=== PATIENT | female | born 1965 | race Caucasian/White ===

== ENCOUNTER 2019-09-18 23:23 | Emergency (ER) | payer MEDICAID ==
[2019-09-19] MEDS ORDERED: Lactated Ringers 1,000 ML IV ONE (00:39)
[2019-09-19] MEDS ORDERED: Metoclopramide 10 MG/2 ML SDV IVPUSH ONE (00:41)
--- NOTE | 2019-09-19 00:52 | EDM.PDOC ---
ED HPI GENERAL MEDICAL PROBLEM - General Chief Complaint: General Stated Complaint: DIZZY, WARM/COLD SWEATS, NAUSEA Time Seen by Provider: 09/19/19 00:35 Source of Information: Reports: Patient, Old Records, RN History Limitations: Reports: Other (incomplete records, poor historian) - History of Present Illness INITIAL COMMENTS - FREE TEXT/NARRATIVE: 54 yo female presents with dizziness and diaphoresis. She has many medical problems and has not been taking most of her medications. Has been moving around a lot lately. Has not checked her BP for several days as her meter has batteries. Had an emesis on arrival to the ER. No reported pain. Lower Abdomen Pain Score (Numeric/FACES): 5 - Related Data Allergies Allergy/AdvReac Type Severity Reaction Status Date / Time hydromorphone [From Dilaudid] Allergy Nausea and Verified 09/19/19 01:30 Vomiting iodine Allergy Itching Verified 09/19/19 01:28 ketorolac [From Toradol] Allergy Hives Verified 09/19/19 01:30 lactobacillus Allergy Rash Verified 09/19/19 01:30 topiramate [From Topamax] Allergy Rash Verified 09/18/19 23:48 venom-honey bee Allergy Respiratory Verified 09/18/19 23:48 Distress cats Allergy Itching Uncoded 09/19/19 01:30 eucalyptus oil Allergy Rash Uncoded 09/19/19 01:28 IV dye Allergy Rash Uncoded 09/19/19 01:28 latex Allergy Itching Uncoded 09/19/19 01:28 vitamin k Allergy Rash Uncoded 09/19/19 01:30 Home Meds: Home Meds Sulfamethoxazole/Trimethoprim [Sulfamethoxazole-Tmp Ds Tablet] 1 each PO BID [History] Acetaminophen [Mapap] 1,000 mg PO TID 09/19/19 [History] Celecoxib [CeleBREX] 200 mg PO BID 09/19/19 [History] Cetirizine [ZyrTEC] 10 mg PO DAILY 09/19/19 [History] EPINEPHrine [Epipen 2-Gustavo] 0.3 mg IJ ASDIRECTED 09/19/19 [History] Escitalopram Oxalate [Lexapro] 20 mg PO DAILY 09/19/19 [History] Fluticasone Propionate [Flonase Allergy Relief] 2 spray NS DAILY 09/19/19 [ History] Furosemide [Lasix] 10 mg PO DAILY 09/19/19 [History] Gabapentin [Neurontin] 100 mg PO TID 09/19/19 [History] Insulin Glarg,Human.Rec.Analog [Lantus Solostar] 25 unit SUBCUT BEDTIME [History] Levothyroxine [Synthroid] 88 mcg PO DAILY 09/19/19 [History] Past Medical History HEENT History: Reports: Impaired Vision Cardiovascular History: Reports: Heart Murmur, High Cholesterol, Hypertension Respiratory History: Reports: Asthma, COPD Gastrointestinal History: Reports: Cirrhosis, Pancreatitis Genitourinary History: Reports: Diabetic Nephropathy, Renal Calculus, UTI, Recurrent, Other (See Below) Other Genitourinary History: 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: Musculoskeletal History: Reports: Fracture Other Musculoskeletal History: fx foot Neurological History: Reports: Brain Injury, Concussion, Head Trauma Psychiatric History: Reports: Addiction, Anxiety, Bipolar, Depression, Psych Hospitalization(s), PTSD, Schizophrenia, Suicide Attempt Endocrine/Metabolic History: Reports: Diabetes, Type II, Hyperthyroidism - Infectious Disease History Infectious Disease History: Reports: Chicken Pox - Past Surgical History GI Surgical History: Reports: Appendectomy, Cholecystectomy, Colonoscopy, Hernia , Abdominal, Lysis of Adhesions, Other (See Below) Other GI Surgeries/Procedures: small bowel obstruction States has had aprox 30 abdomenal surgeries Musculoskeletal Surgical History: Reports: Other (See Below) Other Musculoskeletal Surgeries/Procedures:: bilateral knee surgery bilateral feet surgery neck surgery Social & Family History - Tobacco Use Smoking Status *Q: Current Every Day Smoker Years of Tobacco use: 40 Packs/Tins Daily: 0.2 Used Tobacco, but Quit: No Second Hand Smoke Exposure: Yes - Caffeine Use Caffeine Use: Reports: Soda - Alcohol Use Days Per Week of Alcohol Use: 0 - Recreational Drug Use Recreational Drug Use: No ED ROS GENERAL - Review of Systems Review Of Systems: See Below Constitutional: Reports: Diaphoresis HEENT: Reports: No Symptoms Respiratory: Reports: Shortness of Breath Cardiovascular: Reports: Lightheadedness Endocrine: Reports: High Glucose GI/Abdominal: Reports: Nausea, Vomiting : Reports: No Symptoms Musculoskeletal: Reports: No Symptoms Skin: Reports: Diaphoresis Neurological: Reports: No Symptoms Psychiatric: Reports: No Symptoms ED EXAM, GENERAL - Physical Exam Exam: See Below Exam Limited By: No Limitations General Appearance: Alert, WD/WN, No Apparent Distress Eye Exam: Bilateral Eye: Normal Inspection Ears: Normal External Exam, Normal Canal, Hearing Grossly Normal, Normal TMs Ear Exam: Bilateral Ear: Auricle Normal, Canal Normal, TM normal Nose: Normal Inspection, No Blood Throat/Mouth: Normal Inspection, Normal Lips, Normal Oropharynx, Normal Voice, No Airway Compromise Head: Atraumatic, Normocephalic Neck: Normal Inspection Respiratory/Chest: No Respiratory Distress, Lungs Clear, Normal Breath Sounds, No Accessory Muscle Use Cardiovascular: Regular Rate, Rhythm, No Edema GI/Abdominal: Normal Bowel Sounds, Soft, Non-Tender, No Distention Back Exam: Normal Inspection. No: CVA Tenderness (R), CVA Tenderness (L) Extremities: Normal Inspection, Normal Range of Motion, Non-Tender, No Pedal Edema Neurological: Alert, Oriented, CN II-XII Intact, Normal Cognition, No Motor/ Sensory Deficits Psychiatric: Normal Affect, Normal Mood Skin Exam: Warm, Dry, Intact, Normal Color, No Rash EKG INTERPRETATION EKG Date: 09/19/19 Time: 01:15 Rhythm: NSR Rate (Beats/Min): 76 [place]: Normal P-Wave: Present QRS: Normal ST-T: Normal QT: Normal Comparison: NA - No Prior EKG EKG Interpretation Comments: Flattened T waves throughout. Course - Vital Signs Last Recorded V/S: Last Vital Signs Temp 35.5 C L 09/18/19 23:59 Pulse 66 09/18/19 23:59 Resp 16 09/18/19 23:59 BP 140/88 09/18/19 23:59 Pulse Ox 98 09/18/19 23:59 Orthostatic Blood Pressure [ 123/81 Standing] Orthostatic Blood Pressure [ 134/74 Sitting] Orthostatic Blood Pressure [ 129/76 Supine] - Orders/Labs/Meds Orders: Active Orders 24 hr Category Date Time Status EKG Documentation Completion [RC] ASDIRECTED Care 09/19/19 00:50 Active Orthostatic Vital Signs [RC] ASDIRECTED Care 09/19/19 00:25 Active GLUCOSE POC LAB TO COLLECT [POC] Stat Lab 09/19/19 02:15 Ordered UA W/MICROSCOPIC [URIN] Stat Lab 09/19/19 00:39 Ordered EKG 12 Lead [EK] Routine Ther 03/29/20 00:49 Ordered Labs: Laboratory Tests 09/19/19 09/19/19 09/19/19 Range/Units 01:00 01:00 01:00 WBC 5.8 (4.5-11.0) K/uL RBC 4.35 (3.30-5.50) M/uL Hgb 12.7 (12.0-15.0) g/dL Hct 36.9 (36.0-48.0) % MCV 85 (80-98) fL MCH 29 (27-31) pg MCHC 34 (32-36) % Plt Count 195 (150-400) K/uL Sodium 131 L (140-148) mmol/L Potassium 3.6 (3.6-5.2) mmol/L Chloride 95 L (100-108) mmol/L Carbon Dioxide 24 (21-32) mmol/L Anion Gap 15.6 H (5.0-14.0) mmol/L BUN 26 H (7-18) mg/dL Creatinine 1.3 H (0.6-1.0) mg/dL Est Cr Clr Drug Dosing 43.22 mL/min Estimated GFR (MDRD) 43 L (>60) Glucose 293 H (74-106) mg/dL Calcium 9.7 (8.5-10.1) mg/dL Troponin I < 0.017 (0.000-0.056) ng/mL Ethyl Alcohol < 3 mg/dL Meds: Medications Discontinued Medications Generic Name Dose Route Start Last Admin Trade Name Freq PRN Reason Stop Dose Admin Lactated Ringer's 1,000 mls @ 1,000 mls/hr 09/19/19 00:39 09/19/19 00:58 Ringers, Lactated IV 09/19/19 01:38 1,000 mls/hr BOLUS ONE Administration Insulin Human Regular 12 unit 09/19/19 01:25 09/19/19 01:36 Humulin R SUBCUT 09/19/19 01:26 12 units ONETIME ONE Administration Metoclopramide HCl 5 mg 09/19/19 00:41 09/19/19 01:04 Reglan IVPUSH 09/19/19 00:42 5 mg ONETIME ONE Administration Departure - Departure Time of Disposition: 02:20 Disposition: Home, Self-Care 01 Condition: Fair Clinical Impression: Elevated blood sugar, Mild dehydration - Discharge Information *PRESCRIPTION DRUG MONITORING PROGRAM REVIEWED*: No *COPY OF PRESCRIPTION DRUG MONITORING REPORT IN PATIENT AARTI: No Instructions: Dehydration, Adult, [id number], Hyperglycemia, [id number] Referrals: PCP,None [Primary Care Provider] - Forms: ED Department Discharge Additional Instructions: Drink enough water so that your urine is light yellow in color. Follow a diabetic diet to help keep your blood sugar in check. Recheck in the clinic on Friday. Use Zofran as needed for nausea control. If your glucose meter has batteries, look into getting new ones Friday morning. Take TMP/SMZ every 12 hrs for up to 6 more days for your UTI. Sepsis Event Note - Evaluation Sepsis Screening Result: No Definite Risk - Focused Exam Vital Signs: Vital Signs Temp Pulse Resp BP Pulse Ox 09/18/19 23:59 35.5 C L 66 16 140/88 98 Date Exam was Performed: 09/19/19 Time Exam was Performed: 02:17 - My Orders Last 24 Hours: My Active Orders 09/19/19 00:25 Orthostatic Vital Signs [RC] ASDIRECTED 09/19/19 00:39 UA W/MICROSCOPIC [URIN] Stat 09/19/19 00:49 EKG 12 Lead [EK] Routine 09/19/19 00:50 EKG Documentation Completion [RC] ASDIRECTED 09/19/19 02:15 GLUCOSE POC LAB TO COLLECT [POC] Stat - Assessment/Plan Last 24 Hours: My Active Orders 09/19/19 00:25 Orthostatic Vital Signs [RC] ASDIRECTED 09/19/19 00:39 UA W/MICROSCOPIC [URIN] Stat 09/19/19 00:49 EKG 12 Lead [EK] Routine 09/19/19 00:50 EKG Documentation Completion [RC] ASDIRECTED 09/19/19 02:15 GLUCOSE POC LAB TO COLLECT [POC] Stat
[2019-09-19] MEDS ORDERED: Insulin Regular, Human 100 Units/ML 3 ML Vial SUBCUT ONE (01:25)
[2019-09-19] MEDS ORDERED: Sulfamethoxazole/Trimethoprim 800-160 MG Tab PO STA (02:42)
== END 2019-09-19 03:05 | disposition home or self-care (01) ==
LOC: JP.ED 23:23
DX: E11.21 Type 2 diabetes mellitus with diabetic nephropathy (principal); E86.0 Dehydration; I10 Essential (primary) hypertension; E78.00 Pure hypercholesterolemia, unspecified; J44.9 Chronic obstructive pulmonary disease, unspecified; F41.9 Anxiety disorder, unspecified; F32.9 Major depressive disorder, single episode, unspecified; F17.210 Nicotine dependence, cigarettes, uncomplicated; Z91.040 Latex allergy status; Z91.030 Bee allergy status; Z91.048 Other nonmedicinal substance allergy status; Z91.041 Radiographic dye allergy status; Z88.5 Allergy status to narcotic agent; Z88.8 Allergy status to other drugs, medicaments and biological substances; Z79.4 Long term (current) use of insulin; Z79.899 Other long term (current) drug therapy
CPT/HCPCS: 36415; 80048; 80307; 82962; 84484; 85027; 93005; 96361; 96374; 99284; A9270; J1815; J2765; J7120

== ENCOUNTER 2019-10-22 19:01 | Emergency (ER) | payer MEDICAID ==
--- NOTE | 2019-10-22 19:42 | EDM.PDOC ---
ED HPI GENERAL MEDICAL PROBLEM - General Chief Complaint: Cardiovascular Problem Stated Complaint: SOB,SWELLING IN FEET AND LEGS Time Seen by Provider: 10/22/19 19:25 Source of Information: Reports: Patient History Limitations: Reports: No Limitations - History of Present Illness INITIAL COMMENTS - FREE TEXT/NARRATIVE: 54-year-old female arrives with a mild amount of increased swelling in her feet over the past 3 to 4 days and a perceived increase shortness of breath. She denies getting a day extra sodium intake. Her left foot is also been hurting her for about 2 months and she wants that looked at. She had a talk with her primary provider and they wanted her to come in and get checked due to concerns about developing congestive heart failure. She has no fevers or chills, she continues to smoke about a half a pack a day, no nausea or vomiting or chest pain. Onset: Gradual Duration: Day(s): (Several days) Associated Symptoms: Reports: Shortness of Breath (Intermittent, not orthopneic) . Denies: Chest Pain, Cough, Diaphoresis, Nausea/Vomiting, Weakness Bilateral Feet Pain Score (Numeric/FACES): 6 - Related Data Allergies Allergy/AdvReac Type Severity Reaction Status Date / Time hydromorphone [From Dilaudid] Allergy Nausea and Verified 10/22/19 19:18 Vomiting iodine Allergy Itching Verified 10/22/19 19:18 ketorolac [From Toradol] Allergy Hives Verified 10/22/19 19:18 lactobacillus Allergy Rash Verified 10/22/19 19:18 topiramate [From Topamax] Allergy Rash Verified 10/22/19 19:18 venom-honey bee Allergy Respiratory Verified 10/22/19 19:18 Distress cats Allergy Itching Uncoded 10/22/19 19:18 eucalyptus oil Allergy Rash Uncoded 10/22/19 19:18 IV dye Allergy Rash Uncoded 10/22/19 19:18 latex Allergy Itching Uncoded 10/22/19 19:18 vitamin k Allergy Rash Uncoded 10/22/19 19:18 Home Meds: Home Meds Sulfamethoxazole/Trimethoprim [Sulfamethoxazole-Tmp Ds Tablet] 1 each PO BID [History] Acetaminophen [Mapap] 1,000 mg PO TID 09/19/19 [History] Albuterol [Ventolin HFA] 2 puff .XX Q4H PRN 09/19/19 [History] Amylase/Lipase/Protease [Pancrelipase DR 5,000 Units] 1 cap PO BID 09/19/19 [ History] Celecoxib [CeleBREX] 200 mg PO BID 09/19/19 [History] Cetirizine [ZyrTEC] 10 mg PO DAILY 09/19/19 [History] Cholecalciferol (Vitamin D3) [Vitamin D3] 2 tab PO DAILY 09/19/19 [History] Cholecalciferol (Vitamin D3) [Vitamin D3] 5,000 unit PO DAILY 09/19/19 [History] EPINEPHrine [Epipen 2-Gustavo] 0.3 mg IJ ASDIRECTED 09/19/19 [History] Escitalopram Oxalate [Lexapro] 20 mg PO DAILY 09/19/19 [History] Fluticasone Propionate [Flonase Allergy Relief] 2 spray NS DAILY 09/19/19 [ History] Furosemide [Lasix] 10 mg PO DAILY 09/19/19 [History] Gabapentin [Neurontin] 100 mg PO TID 09/19/19 [History] Insulin Glarg,Human.Rec.Analog [Lantus Solostar] 15 unit SUBCUT TID 09/19/19 [ History] Insulin Glarg,Human.Rec.Analog [Lantus Solostar] 25 unit SUBCUT BEDTIME [History] Levothyroxine [Synthroid] 88 mcg PO DAILY 09/19/19 [History] Loperamide [Imodium] 2 mg PO Q6H PRN 09/19/19 [History] Meclizine [Antivert] 25 mg PO TID PRN 09/19/19 [History] Omeprazole 40 mg PO BID 09/19/19 [History] Ondansetron [Zofran ODT] 4 mg PO Q6H PRN 09/19/19 [History] Prochlorperazine [Compazine] 5 mg PO Q6H PRN 09/19/19 [History] Zaleplon [Sonata] 10 mg PO BEDTIME 09/19/19 [History] lisinopriL [Zestril] 5 mg PO DAILY 09/19/19 [History] oxyCODONE 5 mg PO Q6H PRN 09/19/19 [History] polyethylene glycoL 3350 [MiraLAX] 17 gm PO DAILY PRN 09/19/19 [History] rOPINIRole HCl [Requip] 0.25 mg PO BEDTIME 09/19/19 [History] risperiDONE 1 mg PO BID 09/19/19 [History] Past Medical History HEENT History: Reports: Impaired Vision Cardiovascular History: Reports: Heart Murmur, High Cholesterol, Hypertension Respiratory History: Reports: Asthma, COPD Gastrointestinal History: Reports: Cirrhosis, Pancreatitis Genitourinary History: Reports: Diabetic Nephropathy, Renal Calculus, UTI, Recurrent, Other (See Below) Other Genitourinary History: 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: Musculoskeletal History: Reports: Fracture Other Musculoskeletal History: fx foot Neurological History: Reports: Brain Injury, Concussion, Head Trauma Psychiatric History: Reports: Addiction, Anxiety, Bipolar, Depression, Psych Hospitalization(s), PTSD, Schizophrenia, Suicide Attempt Endocrine/Metabolic History: Reports: Diabetes, Type II, Hyperthyroidism - Infectious Disease History Infectious Disease History: Reports: Chicken Pox - Past Surgical History GI Surgical History: Reports: Appendectomy, Cholecystectomy, Colonoscopy, Hernia , Abdominal, Lysis of Adhesions, Other (See Below) Other GI Surgeries/Procedures: small bowel obstruction States has had aprox 30 abdomenal surgeries Musculoskeletal Surgical History: Reports: Other (See Below) Other Musculoskeletal Surgeries/Procedures:: bilateral knee surgery bilateral feet surgery neck surgery Social & Family History - Family History Family Medical History: Noncontributory - Tobacco Use Smoking Status *Q: Current Every Day Smoker Years of Tobacco use: 49 Packs/Tins Daily: 0.5 Tobacco Use Comment: hemp cigarettes - Caffeine Use Caffeine Use: Reports: Soda, Tea - Recreational Drug Use Recreational Drug Use: No ED ROS GENERAL - Review of Systems Review Of Systems: See Below Constitutional: Denies: Fever, Chills HEENT: Reports: No Symptoms Respiratory: Reports: Shortness of Breath Cardiovascular: Reports: Edema. Denies: Chest Pain, Palpitations Endocrine: Denies: Fatigue GI/Abdominal: Denies: Abdominal Pain, Nausea, Vomiting : Reports: No Symptoms Musculoskeletal: Reports: Other (Left foot pain along the large toe metatarsal) Skin: Reports: No Symptoms Neurological: Denies: Dizziness, Headache ED EXAM, GENERAL - Physical Exam Exam: See Below Exam Limited By: No Limitations General Appearance: Alert, No Apparent Distress, Other (Patient is completely comfortable, no increased respiratory effort or respiratory rate. O2 sats are 98% on room air temperature is 98.3) Head: Atraumatic Respiratory/Chest: No Respiratory Distress, Lungs Clear Cardiovascular: Regular Rate, Rhythm. No: Extra Beats Extremities: Pedal Edema (Patient does have a small amount of pitting edema around the ankles and distal lower leg, somewhat tender to palpation over the metatarsal of the large toe on the left side. No deformity, bruising, erythema or warmth. Edema is very minimal, just slightly worse on the right.) Psychiatric: Flat Affect Skin Exam: Warm, Dry Course - Vital Signs Last Recorded V/S: Last Vital Signs Temp 98.3 F 10/22/19 19:19 Pulse 72 10/22/19 19:19 Resp 16 10/22/19 19:19 BP 134/77 10/22/19 19:19 Pulse Ox 98 10/22/19 19:19 - Re-Assessments/Exams Free Text/Narrative Re-Assessment/Exam: 10/22/19 19:40 Reassured the patient that her vitals and physical exam other than the slight lower extremity edema are actually very normal. She only takes 10 mg of Lasix daily, I asked her to take an extra dose in the early afternoon through the weekend and avoid any extra salt intake. I reviewed her labs from last month when she was here, I do not think they need repeating. I did give her some doses of ibuprofen to take for the foot pain and encouraged her to continue her regular medications. Recheck early next week if not improving satisfactorily, and I encouraged her to return anytime this weekend if increasing shortness of breath, chest pains, increased edema despite the extra Lasix and I also put an Morgan wrap on her left foot for comfort. Departure - Departure Time of Disposition: 19:59 Disposition: Home, Self-Care Clinical Impression: Bilateral lower extremity edema, Tendinitis of left foot Instructions: Edema Referrals: Florentino Jeter MD [Primary Care Provider] - Forms: ED Department Discharge Care Plan Goals: Continue your current medications except take 1 extra Lasix in the early afternoon through the weekend and avoid any extra salt intake. Elevate feet when able, and recheck next week if not improving satisfactorily. 1 dose of ibuprofen twice daily will help with your foot pain. Return anytime if worsening despite treatment. Sepsis Event Note - Evaluation Sepsis Screening Result: No Definite Risk - Focused Exam Vital Signs: Vital Signs Temp Pulse Resp BP Pulse Ox 10/22/19 19:19 98.3 F 72 16 134/77 98 Date Exam was Performed: 10/22/19 Time Exam was Performed: 20:19
== END 2019-10-22 20:00 | disposition home or self-care (01) ==
LOC: JP.ED 19:01
DX: M77.9 Enthesopathy, unspecified (principal); R60.0 Localized edema; I10 Essential (primary) hypertension; J44.9 Chronic obstructive pulmonary disease, unspecified; E11.40 Type 2 diabetes mellitus with diabetic neuropathy, unspecified; E05.90 Thyrotoxicosis, unspecified without thyrotoxic crisis or storm; F41.9 Anxiety disorder, unspecified; F31.9 Bipolar disorder, unspecified; Z88.5 Allergy status to narcotic agent; Z87.442 Personal history of urinary calculi; Z88.8 Allergy status to other drugs, medicaments and biological substances; Z91.030 Bee allergy status; Z91.040 Latex allergy status; Z91.041 Radiographic dye allergy status; Z91.048 Other nonmedicinal substance allergy status; Z79.899 Other long term (current) drug therapy; Z79.4 Long term (current) use of insulin
CPT/HCPCS: 99283; 99284

== ENCOUNTER 2020-02-01 20:48 | Emergency (ER) | payer MEDICAID ==
--- NOTE | 2020-02-01 22:17 | EDM.PDOC ---
ED HPI GENERAL MEDICAL PROBLEM - General Chief Complaint: Genitourinary Problem Stated Complaint: BLADDER INFECTION? Time Seen by Provider: 02/01/20 22:13 Source of Information: Reports: Patient, RN Notes Reviewed History Limitations: Reports: No Limitations - History of Present Illness INITIAL COMMENTS - FREE TEXT/NARRATIVE: 54-year-old female presents emergency department a complaint of dysuria and itching she also states is been feeling kind of nausea she does have a solitary kidney has been having some left-sided flank discomfort as well no fevers symptoms have been ongoing for 1 week - Related Data Allergies Allergy/AdvReac Type Severity Reaction Status Date / Time hydromorphone [From Dilaudid] Allergy Nausea and Verified 02/01/20 21:26 Vomiting iodine Allergy Itching Verified 02/01/20 21:26 ketorolac [From Toradol] Allergy Hives Verified 02/01/20 21:26 lactobacillus Allergy Rash Verified 02/01/20 21:26 topiramate [From Topamax] Allergy Rash Verified 02/01/20 21:26 venom-honey bee Allergy Respiratory Verified 02/01/20 21:26 Distress cats Allergy Itching Uncoded 02/01/20 21:26 eucalyptus oil Allergy Rash Uncoded 02/01/20 21:26 IV dye Allergy Rash Uncoded 02/01/20 21:26 latex Allergy Itching Uncoded 02/01/20 21:26 vitamin k Allergy Rash Uncoded 02/01/20 21:26 Home Meds: Home Meds Acetaminophen [Mapap] 1,000 mg PO TID 09/19/19 [History] Albuterol [Ventolin HFA] 2 puff .XX Q4H PRN 09/19/19 [History] Amylase/Lipase/Protease [Pancrelipase DR 5,000 Units] 1 cap PO BID 09/19/19 [History] Celecoxib [CeleBREX] 200 mg PO BID 09/19/19 [History] Cetirizine [ZyrTEC] 10 mg PO DAILY 09/19/19 [History] Cholecalciferol (Vitamin D3) [Vitamin D3] 2 tab PO DAILY 09/19/19 [History] Cholecalciferol (Vitamin D3) [Vitamin D3] 5,000 unit PO DAILY 09/19/19 [History] EPINEPHrine [Epipen 2-Gustavo] 0.3 mg IJ ASDIRECTED 09/19/19 [History] Escitalopram Oxalate [Lexapro] 20 mg PO DAILY 09/19/19 [History] Fluticasone Propionate [Flonase Allergy Relief] 2 spray NS DAILY 09/19/19 [History] Furosemide [Lasix] 10 mg PO DAILY 09/19/19 [History] Gabapentin [Neurontin] 100 mg PO TID 09/19/19 [History] Insulin Glarg,Human.Rec.Analog [Lantus Solostar] 15 unit SUBCUT TID 09/19/19 [History] Insulin Glarg,Human.Rec.Analog [Lantus Solostar] 25 unit SUBCUT BEDTIME 09/19/19 [History] Levothyroxine [Synthroid] 88 mcg PO DAILY 09/19/19 [History] Loperamide [Imodium] 2 mg PO Q6H PRN 09/19/19 [History] Meclizine [Antivert] 25 mg PO TID PRN 09/19/19 [History] Omeprazole 40 mg PO BID 09/19/19 [History] Ondansetron [Zofran ODT] 4 mg PO Q6H PRN 09/19/19 [History] Prochlorperazine [Compazine] 5 mg PO Q6H PRN 09/19/19 [History] Zaleplon [Sonata] 10 mg PO BEDTIME 09/19/19 [History] lisinopriL [Zestril] 5 mg PO DAILY 09/19/19 [History] oxyCODONE 5 mg PO Q6H PRN 09/19/19 [History] polyethylene glycoL 3350 [MiraLAX] 17 gm PO DAILY PRN 09/19/19 [History] rOPINIRole HCl [Requip] 0.25 mg PO BEDTIME 09/19/19 [History] risperiDONE 1 mg PO BID 09/19/19 [History] Past Medical History HEENT History: Reports: Impaired Vision Cardiovascular History: Reports: Heart Murmur, High Cholesterol, Hypertension Respiratory History: Reports: Asthma, COPD Gastrointestinal History: Reports: Cirrhosis, Pancreatitis Genitourinary History: Reports: Diabetic Nephropathy, Renal Calculus, UTI, Recurrent, Other (See Below) Other Genitourinary History: past 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 stint 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: Musculoskeletal History: Reports: Fracture Other Musculoskeletal History: fx foot Neurological History: Reports: Brain Injury, Concussion, Head Trauma Psychiatric History: Reports: Addiction, Anxiety, Bipolar, Depression, Psych Hospitalization(s), PTSD, Schizophrenia, Suicide Attempt Endocrine/Metabolic History: Reports: Diabetes, Type II, Hyperthyroidism - Infectious Disease History Infectious Disease History: Reports: Chicken Pox - Past Surgical History Head Surgeries/Procedures: Reports: None HEENT Surgical History: Reports: None Cardiovascular Surgical History: Reports: None Respiratory Surgical History: Reports: None GI Surgical History: Reports: Appendectomy, Cholecystectomy, Colonoscopy, Hernia, Abdominal, Lysis of Adhesions, Other (See Below) Other GI Surgeries/Procedures: small bowel obstruction States has had aprox 30 abdomenal surgeries Endocrine Surgical History: Reports: None Neurological Surgical History: Reports: None Musculoskeletal Surgical History: Reports: Other (See Below) Other Musculoskeletal Surgeries/Procedures:: bilateral knee surgery bilateral feet surgery neck surgery Dermatological Surgical History: Reports: None Social & Family History - Family History Family Medical History: Noncontributory - Tobacco Use Smoking Status *Q: Current Every Day Smoker Years of Tobacco use: 45 Packs/Tins Daily: 0.5 Used Tobacco, but Quit: No Second Hand Smoke Exposure: No - Caffeine Use Caffeine Use: Reports: Coffee, Soda - Recreational Drug Use Recreational Drug Use: No ED ROS GENERAL - Review of Systems Review Of Systems: See Below Constitutional: Reports: No Symptoms. Denies: Fever Respiratory: Reports: No Symptoms Cardiovascular: Reports: No Symptoms GI/Abdominal: Reports: Nausea : Reports: Dysuria, Other (Itching) ED EXAM, RENAL/ - Physical Exam Exam: See Below Exam Limited By: No Limitations General Appearance: Alert, WD/WN, No Apparent Distress GI/Abdominal: Soft, Non-Tender Back Exam: CVA Tenderness (L) Course - Vital Signs Last Recorded V/S: Last Vital Signs Temp 96.5 F L 02/01/20 21:30 Pulse 99 02/01/20 21:30 Resp 16 02/01/20 21:30 BP 132/82 02/01/20 21:30 Pulse Ox 95 02/01/20 21:30 - Orders/Labs/Meds Orders: Active Orders 24 hr Category Date Time Status CULTURE URINE [RM] Urgent Lab 02/01/20 21:59 Received Labs: Laboratory Tests 02/01/20 Range/Units 21:24 Urine Color Yellow (YELLOW) Urine Appearance Slightly cloudy A (CLEAR) Urine pH 5.5 (5.0-8.0) Ur Specific [place] <= 1.005 L (1.008-1.030) Urine Protein 100 H (NEGATIVE) mg/dL Urine Glucose (UA) 500 H (NEGATIVE) mg/dL Urine Ketones Negative (NEGATIVE) mg/dL Urine Occult Blood Small H (NEGATIVE) Urine Nitrite Negative (NEGATIVE) Urine Bilirubin Negative (NEGATIVE) Urine Urobilinogen 0.2 (0.2-1.0) EU/dL Ur Leukocyte Esterase Negative (NEGATIVE) Urine RBC 0-5 (0-5) Urine WBC 5-10 H (0-5) Ur Epithelial Cells Few Amorphous Sediment Not seen Urine Bacteria Many Urine Mucus Not seen Departure - Departure Time of Disposition: 22:16 Disposition: Home, Self-Care 01 Condition: Fair Clinical Impression: UTI, Urinary tract infectious disease - Discharge Information Instructions: Urinary Tract Infection, Adult, [id number] Referrals: PCP,None [Primary Care Provider] - Additional Instructions: Take full course antibiotics, please followup with your primary care provider in 3-5 days if not better, please call return to the emergency department with worsening of symptoms. Sepsis Event Note (ED) - Evaluation Sepsis Screening Result: No Definite Risk - Focused Exam Vital Signs: Vital Signs Temp Pulse Resp BP Pulse Ox 02/01/20 21:30 96.5 F L 99 16 132/82 95 02/01/20 21:18 96.5 F L 99 16 132/82 95 - My Orders Last 24 Hours: My Active Orders 02/01/20 21:59 CULTURE URINE [RM] Urgent - Assessment/Plan Last 24 Hours: My Active Orders 02/01/20 21:59 CULTURE URINE [RM] Urgent Plan: Assessment Acuity = acute Site and laterality = urinary tract infection concern for pyelonephritis Etiology = probable bacterial cause Manifestations = dysuria Location of injury = Home Lab values = 5-10 WBCs consistent with a pyuria, many bacteria cultures pending Plan Elected to treat a longer course of Bactrim DS 1 tab p.o. twice daily x10 days follow-up primary care 3 to 5 days if not better This note was dictated using [email or web address] voice recognition software please call with any questions on syntax or grammar.
== END 2020-02-01 22:22 | disposition home or self-care (01) ==
LOC: JP.ED 20:48
DX: N39.0 Urinary tract infection, site not specified (principal); E78.00 Pure hypercholesterolemia, unspecified; I10 Essential (primary) hypertension; E11.21 Type 2 diabetes mellitus with diabetic nephropathy; J44.9 Chronic obstructive pulmonary disease, unspecified; F41.9 Anxiety disorder, unspecified; F31.9 Bipolar disorder, unspecified; F17.210 Nicotine dependence, cigarettes, uncomplicated; Z91.040 Latex allergy status; Z88.6 Allergy status to analgesic agent; Z91.041 Radiographic dye allergy status; Z88.1 Allergy status to other antibiotic agents; Z88.8 Allergy status to other drugs, medicaments and biological substances; Z91.048 Other nonmedicinal substance allergy status; Z91.030 Bee allergy status; Z91.018 Allergy to other foods; Z79.899 Other long term (current) drug therapy; Z88.5 Allergy status to narcotic agent; Z91.09 Other allergy status, other than to drugs and biological substances
CPT/HCPCS: 81001; 87086; 87088; 87186; 99283

== ENCOUNTER 2020-04-05 22:20 | Emergency (ER) | payer MEDICAID, OTHER ==
--- NOTE | 2020-04-05 23:10 | EDM.PDOC ---
ED HPI GENERAL MEDICAL PROBLEM - General Chief Complaint: ENT Problem Stated Complaint: LOWER LT SIDE TOOTH PAIN Time Seen by Provider: 04/05/20 23:04 Source of Information: Reports: Patient History Limitations: Reports: No Limitations - History of Present Illness INITIAL COMMENTS - FREE TEXT/NARRATIVE: Nahid is a 54-year-old female presenting to the ED for evaluation of ongoing dental pain due to a dental abscess. She was seen by her primary provider Florentino Jeter who started her on clindamycin 300 mg 3 times daily and provided her initially with Roxicodone and then secondarily with hydrocodone for pain control. She has subsequently run out of these medications. She reports that she has not been able to get into a dentist and they told her that they are backed up until July. She goes to [facility] in [place]. The patient is experiencing pain and swelling around tooth #19. Onset: Gradual Duration: Week(s): Location: Reports: Other (Tooth #19) Quality: Reports: Ache, Throbbing Severity: Moderate Improves with: Reports: Medication (Hydrocodone or oxycodone) Worsens with: Reports: None Associated Symptoms: Reports: No Other Symptoms Left Lower Jaw Pain Score (Numeric/FACES): 8 - Related Data Allergies Allergy/AdvReac Type Severity Reaction Status Date / Time hydromorphone [From Dilaudid] Allergy Nausea and Verified 04/05/20 22:47 Vomiting iodine Allergy Itching Verified 04/05/20 22:47 ketorolac [From Toradol] Allergy Hives Verified 04/05/20 22:47 lactobacillus Allergy Rash Verified 04/05/20 22:47 topiramate [From Topamax] Allergy Rash Verified 04/05/20 22:47 venom-honey bee Allergy Respiratory Verified 04/05/20 22:47 Distress cats Allergy Itching Uncoded 04/05/20 22:47 eucalyptus oil Allergy Rash Uncoded 04/05/20 22:47 IV dye Allergy Rash Uncoded 04/05/20 22:47 latex Allergy Itching Uncoded 04/05/20 22:47 vitamin k Allergy Rash Uncoded 04/05/20 22:47 Home Meds: Home Meds Acetaminophen [Mapap] 1,000 mg PO TID 09/19/19 [History] Albuterol [Ventolin HFA] 2 puff .XX Q4H PRN 09/19/19 [History] Amylase/Lipase/Protease [Pancrelipase DR 5,000 Units] 1 cap PO BID 09/19/19 [History] Celecoxib [CeleBREX] 200 mg PO BID 09/19/19 [History] Cetirizine [ZyrTEC] 10 mg PO DAILY 09/19/19 [History] Cholecalciferol (Vitamin D3) [Vitamin D3] 5,000 unit PO DAILY 09/19/19 [History] EPINEPHrine [Epipen 2-Gustavo] 0.3 mg IJ ASDIRECTED 09/19/19 [History] Escitalopram Oxalate [Lexapro] 20 mg PO DAILY 09/19/19 [History] Fluticasone Propionate [Flonase Allergy Relief] 2 spray NS DAILY 09/19/19 [History] Furosemide [Lasix] 10 mg PO DAILY 09/19/19 [History] Gabapentin [Neurontin] 100 mg PO TID 09/19/19 [History] Insulin Glarg,Human.Rec.Analog [Lantus Solostar] 75 unit SUBCUT BEDTIME 09/19/19 [History] Levothyroxine [Synthroid] 88 mcg PO DAILY 09/19/19 [History] Loperamide [Imodium] 2 mg PO Q6H PRN 09/19/19 [History] Meclizine [Antivert] 25 mg PO TID PRN 09/19/19 [History] Omeprazole 40 mg PO BID 09/19/19 [History] Ondansetron [Zofran ODT] 4 mg PO Q6H PRN 09/19/19 [History] Prochlorperazine [Compazine] 5 mg PO Q6H PRN 09/19/19 [History] lisinopriL [Zestril] 5 mg PO DAILY 09/19/19 [History] oxyCODONE 5 mg PO Q6H PRN 09/19/19 [History] polyethylene glycoL 3350 [MiraLAX] 17 gm PO DAILY PRN 09/19/19 [History] rOPINIRole HCl [Requip] 0.25 mg PO BEDTIME 09/19/19 [History] risperiDONE 1 mg PO BID 09/19/19 [History] Insulin Aspart [NovoLOG] 25 units SQ TID 04/05/20 [History] Past Medical History HEENT History: Reports: Impaired Vision Cardiovascular History: Reports: Heart Murmur, High Cholesterol, Hypertension Respiratory History: Reports: Asthma, COPD Gastrointestinal History: Reports: Cirrhosis, Pancreatitis Genitourinary History: Reports: Diabetic Nephropathy, Renal Calculus, UTI, Recurrent, Other (See Below) Other Genitourinary History: past uretheral stint 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: Musculoskeletal History: Reports: Fracture, Fibromyalgia Other Musculoskeletal History: fx foot Neurological History: Reports: Brain Injury, Concussion, Head Trauma Psychiatric History: Reports: Addiction, Anxiety, Bipolar, Depression, Psych Hospitalization(s), PTSD, Schizophrenia, Suicide Attempt Endocrine/Metabolic History: Reports: Diabetes, Type II, Hyperthyroidism - Infectious Disease History Infectious Disease History: Reports: Chicken Pox, Shingles - Past Surgical History Head Surgeries/Procedures: Reports: None HEENT Surgical History: Reports: None Cardiovascular Surgical History: Reports: None Respiratory Surgical History: Reports: None GI Surgical History: Reports: Appendectomy, Cholecystectomy, Colonoscopy, Hernia, Abdominal, Lysis of Adhesions, Other (See Below) Other GI Surgeries/Procedures: small bowel obstruction States has had aprox 30 abdomenal surgeries Endocrine Surgical History: Reports: None Neurological Surgical History: Reports: None Musculoskeletal Surgical History: Reports: Other (See Below) Other Musculoskeletal Surgeries/Procedures:: bilateral knee surgery bilateral feet surgery neck surgery Dermatological Surgical History: Reports: None Social & Family History - Family History Family Medical History: Noncontributory - Tobacco Use Tobacco Use Status *Q: Current Every Day Tobacco User Years of Tobacco use: 49 Packs/Tins Daily: 0.2 - Caffeine Use Caffeine Use: Reports: None - Recreational Drug Use Recreational Drug Use: No ED ROS ENT - Review of Systems Review Of Systems: See Below Constitutional: Reports: No Symptoms HEENT: Reports: Dental Pain, Other (Facial swelling over the left mandible adjacent to tooth 19.) Respiratory: Reports: No Symptoms Cardiovascular: Reports: No Symptoms Endocrine: Reports: No Symptoms GI/Abdominal: Reports: No Symptoms Musculoskeletal: Reports: No Symptoms ED EXAM, ENT - Physical Exam Exam: See Below Exam Limited By: No Limitations General Appearance: Alert, Anxious, Mild Distress Eye Exam: Bilateral Eye: EOMI, PERRL Mouth/Throat: Dental Abcess (Tooth 19 with significant gingivitis at its base. There is no pointing abscess to I&D.), Dental Pain, Gum Swelling Head: Facial Swelling (Adjacent to tooth 19) Neck: Normal Inspection, Supple, Non-Tender, Full Range of Motion, Lymphadenopathy (L). No: Lymphadenopathy (R) Respiratory/Chest: No Respiratory Distress, Lungs Clear, Normal Breath Sounds ED ENT PROCEDURES - Additional/Other Procedure(s) Other (Free Text) Procedure(s): Ana options for dental pain control and the patient elected to have an inferior alveolar dental block. Verbal consent was obtained and risks and benefits were discussed. A dental block was applied using bupivacaine 0.5% with 1:200,000 epinephrine. A total of 1.8 mL's was instilled in and around the left inferior alveolar nerve with good anesthesia taking the pain way down on tooth #19. There were no complications to the procedure. Course - Vital Signs Last Recorded V/S: Last Vital Signs Temp 36.6 C 04/05/20 22:55 Pulse 102 H 04/05/20 22:55 Resp 16 04/05/20 22:55 BP 145/89 H 04/05/20 22:55 Pulse Ox 97 04/05/20 22:55 - Re-Assessments/Exams Free Text/Narrative Re-Assessment/Exam: 04/05/20 23:32 assessment of the patient after the inferior alveolar dental block resulted in good anesthesia involving tooth #19. At this time the patient is suitable for discharge home in satisfactory condition. Departure - Departure Time of Disposition: 23:29 Disposition: Home, Self-Care 01 Condition: Good Clinical Impression: Dental abscess, Dental caries extending into dentin - Discharge Information *PRESCRIPTION DRUG MONITORING PROGRAM REVIEWED*: No *COPY OF PRESCRIPTION DRUG MONITORING REPORT IN PATIENT AARTI: No Instructions: Dental Abscess, [id number] Referrals: Florentino Jeter MD [Primary Care Provider] - Care Plan Goals: Follow-up as soon as possible with your primary care provider to extend your pain medication prescription. Follow-up with the emergency dentist as soon as possible to address this tooth. Sepsis Event Note (ED) - Evaluation Sepsis Screening Result: No Definite Risk - Focused Exam Vital Signs: Vital Signs Temp Pulse Resp BP Pulse Ox 04/05/20 22:55 36.6 C 102 H 16 145/89 H 97 04/05/20 22:45 36.6 C 102 H 16 145/89 H 97 - Problem List & Annotations (1) Dental abscess SNOMED Code(s): 183298635 Code(s): K04.7 - PERIAPICAL ABSCESS WITHOUT SINUS Status: Acute Priority: Low Current Visit: Yes (2) Dental caries extending into dentin SNOMED Code(s): 913842458 Code(s): K02.62 - DENTAL CARIES ON SMOOTH SURFACE PENETRATING INTO DENTIN Status: Acute Priority: Low Current Visit: Yes - Problem List Review Problem List Initiated/Reviewed/Updated: Yes
[2020-04-05] MEDS ORDERED: Bupivacaine 0.5%/EPINEPHrine 1:200,000 50 ML MDV NERVRT ONE (23:11)
[2020-04-05] MEDS ORDERED: Bupivacaine 0.5%/EPINEPHrine 1:200,000 1.8 ML Cartridge INJECT ONE (23:13)
== END 2020-04-05 23:39 | disposition home or self-care (01) ==
LOC: JP.ED 22:20
DX: K04.7 Periapical abscess without sinus (principal); K02.9 Dental caries, unspecified; E78.00 Pure hypercholesterolemia, unspecified; I10 Essential (primary) hypertension; J44.9 Chronic obstructive pulmonary disease, unspecified; E11.21 Type 2 diabetes mellitus with diabetic nephropathy; F31.9 Bipolar disorder, unspecified; F41.9 Anxiety disorder, unspecified; E05.90 Thyrotoxicosis, unspecified without thyrotoxic crisis or storm; F17.210 Nicotine dependence, cigarettes, uncomplicated; Z88.5 Allergy status to narcotic agent; Z91.048 Other nonmedicinal substance allergy status; Z88.6 Allergy status to analgesic agent; Z91.030 Bee allergy status; Z91.010 Allergy to peanuts; Z88.8 Allergy status to other drugs, medicaments and biological substances; Z79.4 Long term (current) use of insulin; Z79.899 Other long term (current) drug therapy
CPT/HCPCS: 64400; 99282; J3490

== ENCOUNTER 2020-12-11 21:40 | Emergency (ER) | payer MEDICAID, SELFPAY ==
--- NOTE | 2020-12-12 00:38 | CRLCT ---
INDICATION: Abdominal pain, diarrhea TECHNIQUE: CT Abdomen and pelvis without i.v. contrast. Coronal and sagittal reformats were obtained. COMPARISON: None FINDINGS: Lower chest: Unremarkable. Moderate elevation of the left hemidiaphragm is present. Liver: The liver has a nodular capsular contour, consistent with micronodular cirrhosis. No focal liver lesions are identified. Spleen: Unremarkable. Pancreas: Unremarkable. Gallbladder: Previous cholecystectomy noted without significant intra- or extrahepatic biliary ductal dilatation seen. 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 Adrenal: Unremarkable. Bowel: Patient is status post partial colectomy moderate gaseous distention of the sigmoid and descending colon seen. The appendix is not visualized and likely surgically absent. Vascular: Unremarkable. Lymph: Unremarkable. Peritoneum: Unremarkable. No pneumoperitoneum is seen. No significant ascites is noted. Pelvis: A moderate amount of gas is present in the bladder that also has moderate wall thickening. Soft tissue: Unremarkable. Bone: Unremarkable for age. IMPRESSION: 1. A moderate amount of gas is present in the bladder that also has moderate wall thickening. This is likely due to recent bladder instrumentation but in the absence of this history, a gas forming urinary tract infection should be considered. Dictated by Mook Russell MD @ 12/12/2020 12:35:59 AM Please note that all CT scans at this facility use dose modulation, iterative reconstruction, and/or weight-based dosing when appropriate to reduce radiation dose to as low as reasonably achievable. Dictated by: Mook Russell MD @ 12/12/2020 00:36:02 (Electronically Signed)
--- NOTE | 2020-12-12 00:49 | EDM.PDOC ---
ED HPI GENERAL MEDICAL PROBLEM - General Chief Complaint: Abdominal Pain Stated Complaint: ABDOMINAL AND BACK PAIN Time Seen by Provider: 12/11/20 22:20 Source of Information: Reports: Patient History Limitations: Reports: No Limitations - History of Present Illness INITIAL COMMENTS - FREE TEXT/NARRATIVE: 55-year-old female that has had numerous abdominal surgeries and usually gets her care at the [facility] presents with 5 days of diarrhea and lower abdominal pain and cramping. No fever or chills. Bowels are moving, she is able to eat and drink but is having more nausea than usual. She was going to go down the [place] to be evaluated but did not have gas for her car. Some pain radiating to her left back. Onset: Gradual Duration: Day(s): (3 to 4 days of symptoms, 5 days of diarrhea) Associated Symptoms: Reports: Malaise. Denies: Confusion, Chest Pain, Cough, Fever/Chills, Shortness of Breath Lower Abdomen Pain Score (Numeric/FACES): 7 - Related Data Allergies Allergy/AdvReac Type Severity Reaction Status Date / Time iodine Allergy Itching Verified 12/11/20 22:30 ketorolac [From Toradol] Allergy Hives Verified 12/11/20 22:30 lactobacillus Allergy Rash Verified 12/11/20 22:30 topiramate [From Topamax] Allergy Rash Verified 12/11/20 22:30 venom-honey bee Allergy Respiratory Verified 12/11/20 22:30 Distress hydromorphone [From Dilaudid] AdvReac Nausea and Verified 12/11/20 22:30 Vomiting cats Allergy Itching Uncoded 12/11/20 22:30 eucalyptus oil Allergy Rash Uncoded 12/11/20 22:30 IV dye Allergy Rash Uncoded 12/11/20 22:30 latex Allergy Itching Uncoded 12/11/20 22:30 vitamin k Allergy Rash Uncoded 12/11/20 22:30 Home Meds: Home Meds Acetaminophen [Mapap] 1,000 mg PO TID 09/19/19 [History] Albuterol [Ventolin HFA] 2 puff .XX Q4H PRN 09/19/19 [History] Amylase/Lipase/Protease [Pancrelipase DR 5,000 Units] 1 cap PO BID 09/19/19 [History] Celecoxib [CeleBREX] 200 mg PO BID 09/19/19 [History] Cetirizine [ZyrTEC] 10 mg PO DAILY 09/19/19 [History] EPINEPHrine [Epipen 2-Gustavo] 0.3 mg IJ ASDIRECTED 09/19/19 [History] Escitalopram Oxalate [Lexapro] 20 mg PO DAILY 09/19/19 [History] Fluticasone Propionate [Flonase Allergy Relief] 2 spray NS DAILY 09/19/19 [History] Furosemide [Lasix] 10 mg PO DAILY 09/19/19 [History] Gabapentin [Neurontin] 100 mg PO TID 09/19/19 [History] Insulin Glarg,Human.Rec.Analog [Lantus Solostar] 75 unit SUBCUT BEDTIME 09/19/19 [History] Levothyroxine [Synthroid] 88 mcg PO DAILY 09/19/19 [History] Loperamide [Imodium] 2 mg PO Q6H PRN 09/19/19 [History] Meclizine [Antivert] 25 mg PO TID PRN 09/19/19 [History] Omeprazole 40 mg PO BID 09/19/19 [History] Ondansetron [Zofran ODT] 4 mg PO Q6H PRN 09/19/19 [History] Prochlorperazine [Compazine] 5 mg PO Q6H PRN 09/19/19 [History] lisinopriL [Zestril] 5 mg PO DAILY 09/19/19 [History] oxyCODONE 5 mg PO Q6H PRN 09/19/19 [History] polyethylene glycoL 3350 [MiraLAX] 17 gm PO DAILY PRN 09/19/19 [History] rOPINIRole HCl [Requip] 0.25 mg PO BEDTIME 09/19/19 [History] risperiDONE 1 mg PO BID 09/19/19 [History] Insulin Aspart [NovoLOG] 25 units SQ TID 04/05/20 [History] Past Medical History HEENT History: Reports: Impaired Vision Cardiovascular History: Reports: Heart Murmur, High Cholesterol, Hypertension Respiratory History: Reports: Asthma, COPD Gastrointestinal History: Reports: Cirrhosis, Pancreatitis Genitourinary History: Reports: Diabetic Nephropathy, Renal Calculus, UTI, Recurrent, Other (See Below) Other Genitourinary History: past uretheral stint CATALOGUE ILLUSTRATOR History: Reports: Musculoskeletal History: Reports: Fracture, Fibromyalgia Other Musculoskeletal History: fx foot Neurological History: Reports: Brain Injury, Concussion, Head Trauma Psychiatric History: Reports: Addiction, Anxiety, Bipolar, Depression, Psych Hospitalization(s), PTSD, Schizophrenia, Suicide Attempt Other Psychiatric History: 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 Endocrine/Metabolic History: Reports: Diabetes, Type II, Hyperthyroidism, Obesity/BMI 30+ - Infectious Disease History Infectious Disease History: Reports: Chicken Pox, Shingles - Past Surgical History Head Surgeries/Procedures: Reports: None HEENT Surgical History: Reports: None Cardiovascular Surgical History: Reports: None Respiratory Surgical History: Reports: None GI Surgical History: Reports: Appendectomy, Cholecystectomy, Colonoscopy, Hernia, Abdominal, Lysis of Adhesions, Other (See Below) Other GI Surgeries/Procedures: small bowel obstruction several States has had aprox 30 abdomenal surgeries Endocrine Surgical History: Reports: None Neurological Surgical History: Reports: None Musculoskeletal Surgical History: Reports: Other (See Below) Other Musculoskeletal Surgeries/Procedures:: bilateral knee surgery bilateral feet surgery neck surgery Dermatological Surgical History: Reports: None Social & Family History - Family History Family Medical History: No Pertinent Family History - Tobacco Use Tobacco Use Status *Q: Current Every Day Tobacco User Years of Tobacco use: 48 Packs/Tins Daily: 0.2 Used Tobacco, but Quit: No Second Hand Smoke Exposure: Yes - Caffeine Use Caffeine Use: Reports: Soda - Recreational Drug Use Recreational Drug Use: Yes Recreational Drug Type: Reports: Marijuana/Hashish Recreational Drug Use Frequency: Rarely ED ROS GENERAL - Review of Systems Review Of Systems: See Below Constitutional: Reports: Malaise. Denies: Fever, Chills HEENT: Reports: No Symptoms Respiratory: Denies: Shortness of Breath Cardiovascular: Denies: Chest Pain GI/Abdominal: Reports: Abdominal Pain, Diarrhea Skin: Reports: No Symptoms Neurological: Denies: Headache ED EXAM, GI/ABD - Physical Exam Exam: See Below Exam Limited By: No Limitations General Appearance: Alert, No Apparent Distress Eyes: Bilateral: Normal Appearance Head: Atraumatic Respiratory/Chest: No Respiratory Distress, Lungs Clear Cardiovascular: Regular Rate, Rhythm GI/Abdominal Exam: Normal Bowel Sounds, Soft, Tender (Moderately tender across lower abdomen, no focal rebound or guarding) Extremities: Normal Inspection Neurological: Alert, Oriented Psychiatric: Flat Affect Skin Exam: Other (A few spots of bruising in the lower abdomen from insulin injections) Course - Vital Signs Last Recorded V/S: Last Vital Signs Temp 97.3 F 12/11/20 22:38 Pulse 74 12/11/20 22:38 Resp 16 12/11/20 22:38 BP 127/93 H 12/11/20 22:38 Pulse Ox 100 12/11/20 22:38 - Orders/Labs/Meds Labs: Laboratory Tests 12/11/20 12/11/20 12/11/20 Range/Units 22:40 22:40 22:40 WBC 6.3 (4.5-11.0) K/uL RBC 4.68 (3.30-5.50) M/uL Hgb 13.9 (12.0-15.0) g/dL Hct 42.9 (36.0-48.0) % MCV 92 (80-98) fL MCH 30 (27-31) pg MCHC 32 (32-36) % Plt Count 220 (150-400) K/uL Neut % (Auto) 42.8 (36-66) % Lymph % (Auto) 46.8 H (24-44) % Mower % (Auto) 7.3 H (2-6) % Eos % (Auto) 2.8 (2-4) % Baso % (Auto) 0.3 (0-1) % Sodium 137 L (140-148) mmol/L Potassium 4.5 (3.6-5.2) mmol/L Chloride 103 (100-108) mmol/L Carbon Dioxide 26 (21-32) mmol/L Anion Gap 12.5 (5.0-14.0) mmol/L BUN 21 H (7-18) mg/dL Creatinine 1.2 H (0.6-1.0) mg/dL Est Cr Clr Drug Dosing 46.28 mL/min Estimated GFR (MDRD) 47 L (>60) Glucose 201 H (74-106) mg/dL Lactic Acid (0.4-2.0) mmol/L Calcium 8.7 (8.5-10.1) mg/dL Total Bilirubin 0.6 (0.2-1.0) mg/dL AST 72 H (15-37) U/L ALT 77 (12-78) U/L Alkaline Phosphatase 300 H (46-116) U/L Total Protein 7.3 (6.4-8.2) g/dL Albumin 2.4 L (3.4-5.0) g/dL Globulin 4.9 H (2.3-3.5) g/dL Albumin/Globulin Ratio 0.5 L (1.2-2.2) Urine Color Yellow (YELLOW) Urine Appearance Cloudy A (CLEAR) Urine pH 5.5 (5.0-8.0) Ur Specific Beaver >= 1.030 (1.008-1.030) Urine Protein >=300 H (NEGATIVE) mg/dL Urine Glucose (UA) 500 H (NEGATIVE) mg/dL Urine Ketones Negative (NEGATIVE) mg/dL Urine Occult Blood Moderate (NEGATIVE) Urine Nitrite Negative (NEGATIVE) Urine Bilirubin Negative (NEGATIVE) Urine Urobilinogen 1.0 (0.2-1.0) EU/dL Ur Leukocyte Esterase Negative (NEGATIVE) Urine RBC 0-5 (0-5) Urine WBC 20-30 H (0-5) Ur Epithelial Cells Few Amorphous Sediment Not seen Urine Bacteria Many Urine Mucus Not seen Urine Opiates Screen (NEGATIVE) Ur Oxycodone Screen (NEGATIVE) Urine Methadone Screen (NEGATIVE) Ur Propoxyphene Screen (NEGATIVE) Ur Barbiturates Screen (NEGATIVE) Ur Tricyclics Screen (NEGATIVE) Ur Phencyclidine Scrn (NEGATIVE) Ur Amphetamine Screen (NEGATIVE) U Methamphetamines Scrn (NEGATIVE) Urine MDMA Screen (NEGATIVE) U Benzodiazepines Scrn (NEGATIVE) U Cocaine Metab Screen (NEGATIVE) U Marijuana (THC) Screen (NEGATIVE) 12/11/20 12/11/20 Range/Units 22:40 22:55 WBC (4.5-11.0) K/uL RBC (3.30-5.50) M/uL Hgb (12.0-15.0) g/dL Hct (36.0-48.0) % MCV (80-98) fL MCH (27-31) pg MCHC (32-36) % Plt Count (150-400) K/uL Neut % (Auto) (36-66) % Lymph % (Auto) (24-44) % Mower % (Auto) (2-6) % Eos % (Auto) (2-4) % Baso % (Auto) (0-1) % Sodium (140-148) mmol/L Potassium (3.6-5.2) mmol/L Chloride (100-108) mmol/L Carbon Dioxide (21-32) mmol/L Anion Gap (5.0-14.0) mmol/L BUN (7-18) mg/dL Creatinine (0.6-1.0) mg/dL Est Cr Clr Drug Dosing mL/min Estimated GFR (MDRD) (>60) Glucose (74-106) mg/dL Lactic Acid 1.2 (0.4-2.0) mmol/L Calcium (8.5-10.1) mg/dL Total Bilirubin (0.2-1.0) mg/dL AST (15-37) U/L ALT (12-78) U/L Alkaline Phosphatase (46-116) U/L Total Protein (6.4-8.2) g/dL Albumin (3.4-5.0) g/dL Globulin (2.3-3.5) g/dL Albumin/Globulin Ratio (1.2-2.2) Urine Color (YELLOW) Urine Appearance (CLEAR) Urine pH (5.0-8.0) Ur Specific Beaver (1.008-1.030) Urine Protein (NEGATIVE) mg/dL Urine Glucose (UA) (NEGATIVE) mg/dL Urine Ketones (NEGATIVE) mg/dL Urine Occult Blood (NEGATIVE) Urine Nitrite (NEGATIVE) Urine Bilirubin (NEGATIVE) Urine Urobilinogen (0.2-1.0) EU/dL Ur Leukocyte Esterase (NEGATIVE) Urine RBC (0-5) Urine WBC (0-5) Ur Epithelial Cells Amorphous Sediment Urine Bacteria Urine Mucus Urine Opiates Screen Negative (NEGATIVE) Ur Oxycodone Screen Negative (NEGATIVE) Urine Methadone Screen Negative (NEGATIVE) Ur Propoxyphene Screen Negative (NEGATIVE) Ur Barbiturates Screen Negative (NEGATIVE) Ur Tricyclics Screen Negative (NEGATIVE) Ur Phencyclidine Scrn Negative (NEGATIVE) Ur Amphetamine Screen Negative (NEGATIVE) U Methamphetamines Scrn Negative (NEGATIVE) Urine MDMA Screen Negative (NEGATIVE) U Benzodiazepines Scrn Negative (NEGATIVE) U Cocaine Metab Screen Negative (NEGATIVE) U Marijuana (THC) Screen Negative (NEGATIVE) - Re-Assessments/Exams Free Text/Narrative Re-Assessment/Exam: 12/12/20 05:24 CBC, CMP and UA were obtained. Urine shows bacteria and glucose as well as WBCs. White count and hemoglobin were normal. 12/12/20 05:24 Urine drug screen was negative. CT of the abdomen and pelvis without contrast was obtained that showed some gas in the bladder but no other acute findings. Patient has not had any recent intrabladder procedures. A urine culture was initiated and the patient was started on ciprofloxacin 500 mg twice daily and will take for 10 days. Encouraged fluid intake maintaining hydration, and return if not improving despite antibiotics. Departure - Departure Time of Disposition: 01:06 Disposition: Home, Self-Care 01 Clinical Impression: UTI (urinary tract infection) Qualifiers: Urinary tract infection type: acute cystitis Hematuria presence: without hematuria Qualified Code(s): N30.00 - Acute cystitis without hematuria Abdominal pain Qualifiers: Abdominal location: generalized Qualified Code(s): R10.84 - Generalized abdominal pain - Discharge Information Instructions: Urinary Tract Infection, Adult Referrals: Florentino Jeter MD [Primary Care Provider] - Forms: ED Department Discharge Care Plan Goals: Take ciprofloxacin twice daily as prescribed for at least 7 days. Recheck in 2 to 3 days if not improving satisfactorily, or return anytime if worsening such as fever or increased pain. Sepsis Event Note (ED) - Evaluation Sepsis Screening Result: No Definite Risk - Focused Exam Vital Signs: Vital Signs Temp Pulse Resp BP Pulse Ox 12/11/20 22:38 97.3 F 74 16 127/93 H 100 12/11/20 22:03 97.3 F 74 16 127/93 H 100
== END 2020-12-12 01:06 | disposition home or self-care (01) ==
LOC: JP.ED 21:40
DX: N30.00 Acute cystitis without hematuria (principal); E11.21 Type 2 diabetes mellitus with diabetic nephropathy; E03.9 Hypothyroidism, unspecified; E66.9 Obesity, unspecified; E78.00 Pure hypercholesterolemia, unspecified; I10 Essential (primary) hypertension; J44.9 Chronic obstructive pulmonary disease, unspecified; Z79.899 Other long term (current) drug therapy; Z79.4 Long term (current) use of insulin; Z91.048 Other nonmedicinal substance allergy status; Z91.041 Radiographic dye allergy status; Z91.030 Bee allergy status; Z88.5 Allergy status to narcotic agent; Z88.6 Allergy status to analgesic agent; Z88.8 Allergy status to other drugs, medicaments and biological substances
CPT/HCPCS: 36415; 74176; 80053; 80305-QW; 81001; 83605; 85025; 87086; 87088; 87186; 99283; 99284-25

== ENCOUNTER 2021-01-08 21:36 | Emergency (ER) | payer MEDICAID ==
[2021-01-08] MEDS ORDERED: Sodium Chloride 0.9% 10 ML Syringe FLUSH PRN (22:26)
[2021-01-08] MEDS ORDERED: Ondansetron 4 MG/2 ML SDV IVPUSH ONE (22:27)
[2021-01-08] MEDS ORDERED: Lactated Ringers 1,000 ML IV SCH (22:30)
--- NOTE | 2021-01-08 22:30 | EDM.PDOC ---
ED HPI GENERAL MEDICAL PROBLEM - General Chief Complaint: General Stated Complaint: FATIGUE, VOMITING Time Seen by Provider: 01/08/21 22:05 Source of Information: Reports: Patient, RN Notes Reviewed History Limitations: Reports: No Limitations - History of Present Illness INITIAL COMMENTS - FREE TEXT/NARRATIVE: 55-year-old female presents emergency department day complaint of nausea and vomiting, she was recently diagnosed with C. difficile has been placed on oral vancomycin she states she is tolerating this drug but it is hard on her she has had poor oral intake. No fevers no shortness of breath or chest pain Lower Abdomen Pain Score (Numeric/FACES): 6 - Related Data Allergies Allergy/AdvReac Type Severity Reaction Status Date / Time iodine Allergy Itching Verified 12/11/20 22:30 ketorolac [From Toradol] Allergy Hives Verified 12/11/20 22:30 lactobacillus Allergy Rash Verified 12/11/20 22:30 topiramate [From Topamax] Allergy Rash Verified 12/11/20 22:30 venom-honey bee Allergy Respiratory Verified 12/11/20 22:30 Distress hydromorphone [From Dilaudid] AdvReac Nausea and Verified 12/11/20 22:30 Vomiting cats Allergy Itching Uncoded 12/11/20 22:30 eucalyptus oil Allergy Rash Uncoded 12/11/20 22:30 IV dye Allergy Rash Uncoded 12/11/20 22:30 latex Allergy Itching Uncoded 12/11/20 22:30 vitamin k Allergy Rash Uncoded 12/11/20 22:30 Home Meds: Home Meds Acetaminophen [Mapap] 1,000 mg PO TID 09/19/19 [History] Albuterol [Ventolin HFA] 2 puff .XX Q4H PRN 09/19/19 [History] Amylase/Lipase/Protease [Pancrelipase DR 5,000 Units] 1 cap PO BID 09/19/19 [History] Celecoxib [CeleBREX] 200 mg PO BID 09/19/19 [History] Cetirizine [ZyrTEC] 10 mg PO DAILY 09/19/19 [History] EPINEPHrine [Epipen 2-Gustavo] 0.3 mg IJ ASDIRECTED 09/19/19 [History] Escitalopram Oxalate [Lexapro] 20 mg PO DAILY 09/19/19 [History] Fluticasone Propionate [Flonase Allergy Relief] 2 spray NS DAILY 09/19/19 [History] Furosemide [Lasix] 10 mg PO DAILY 09/19/19 [History] Gabapentin [Neurontin] 100 mg PO TID 09/19/19 [History] Insulin Glarg,Human.Rec.Analog [Lantus Solostar] 75 unit SUBCUT BEDTIME 09/19/19 [History] Levothyroxine [Synthroid] 88 mcg PO DAILY 09/19/19 [History] Loperamide [Imodium] 2 mg PO Q6H PRN 09/19/19 [History] Meclizine [Antivert] 25 mg PO TID PRN 09/19/19 [History] Omeprazole 40 mg PO BID 09/19/19 [History] Ondansetron [Zofran ODT] 4 mg PO Q6H PRN 09/19/19 [History] Prochlorperazine [Compazine] 5 mg PO Q6H PRN 09/19/19 [History] lisinopriL [Zestril] 5 mg PO DAILY 09/19/19 [History] oxyCODONE 5 mg PO Q6H PRN 09/19/19 [History] polyethylene glycoL 3350 [MiraLAX] 17 gm PO DAILY PRN 09/19/19 [History] rOPINIRole HCl [Requip] 0.25 mg PO BEDTIME 09/19/19 [History] risperiDONE 1 mg PO BID 09/19/19 [History] Insulin Aspart [NovoLOG] 25 units SQ TID 04/05/20 [History] Vancomycin HCl 1 cap PO QID 01/08/21 [History] Omeprazole 20 mg PO BID #30 tablet. 01/09/21 [Rx] Ondansetron [Zofran ODT] 4 mg PO Q6H PRN #5 tab.dis 01/09/21 [Rx] Past Medical History HEENT History: Reports: Impaired Vision Cardiovascular History: Reports: Heart Murmur, High Cholesterol, Hypertension Respiratory History: Reports: Asthma, COPD Gastrointestinal History: Reports: Cirrhosis, Pancreatitis Genitourinary History: Reports: Diabetic Nephropathy, Renal Calculus, UTI, Recurrent, Other (See Below) Other Genitourinary History: past uretheral stint [employer] History: Reports: Musculoskeletal History: Reports: Fracture, Fibromyalgia Other Musculoskeletal History: fx foot Neurological History: Reports: Brain Injury, Concussion, Head Trauma Psychiatric History: Reports: Addiction, Anxiety, Bipolar, Depression, Psych Hospitalization(s), PTSD, Schizophrenia, Suicide Attempt Other Psychiatric History: 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 Endocrine/Metabolic History: Reports: Diabetes, Type II, Hyperthyroidism, Obesity/BMI 30+ - Infectious Disease History Infectious Disease History: Reports: C-Difficile, Chicken Pox, Shingles - Past Surgical History Head Surgeries/Procedures: Reports: None HEENT Surgical History: Reports: None Cardiovascular Surgical History: Reports: None Respiratory Surgical History: Reports: None GI Surgical History: Reports: Appendectomy, Cholecystectomy, Colonoscopy, Hernia, Abdominal, Lysis of Adhesions, Other (See Below) Other GI Surgeries/Procedures: small bowel obstruction several States has had aprox 30 abdomenal surgeries Endocrine Surgical History: Reports: None Neurological Surgical History: Reports: None Musculoskeletal Surgical History: Reports: Other (See Below) Other Musculoskeletal Surgeries/Procedures:: bilateral knee surgery bilateral feet surgery neck surgery Dermatological Surgical History: Reports: None Social & Family History - Family History Family Medical History: No Pertinent Family History - Tobacco Use Tobacco Use Status *Q: Current Every Day Tobacco User Years of Tobacco use: 45 Packs/Tins Daily: 0.5 - Caffeine Use Caffeine Use: Reports: None - Recreational Drug Use Recreational Drug Use: Yes Recreational Drug Type: Reports: Marijuana/Hashish, Valium ED ROS GENERAL - Review of Systems Review Of Systems: See Below Constitutional: Denies: Fever, Chills HEENT: Reports: No Symptoms Respiratory: Reports: No Symptoms Cardiovascular: Reports: No Symptoms GI/Abdominal: Reports: Abdominal Pain (Cramping), Nausea, Vomiting. Denies: Constipation, Diarrhea : Reports: No Symptoms ED EXAM, GENERAL - Physical Exam Exam: See Below Exam Limited By: No Limitations General Appearance: Alert, WD/WN, No Apparent Distress Throat/Mouth: Normal Inspection, Normal Teeth, Normal Oropharynx, Normal Voice, No Airway Compromise, Other (dry lips) Respiratory/Chest: No Respiratory Distress, Lungs Clear, Normal Breath Sounds, No Accessory Muscle Use, Chest Non-Tender Cardiovascular: No Murmur, Tachycardia GI/Abdominal: Soft, Non-Tender Course - Vital Signs Last Recorded V/S: Last Vital Signs Temp 97.8 F 01/08/21 22:04 Pulse 78 01/09/21 03:32 Resp 16 01/09/21 03:32 BP 122/79 01/09/21 03:32 Pulse Ox 97 01/09/21 03:32 - Orders/Labs/Meds Orders: Active Orders 24 hr Category Date Time Status Peripheral IV Care [RC] . DIRECTED Care 01/08/21 22:27 Active CULTURE URINE [RM] Urgent Lab 01/09/21 03:43 Ordered GLUCOSE POC LAB TO COLLECT JPM [POC] Stat Lab 01/09/21 03:35 Ordered Dextrose 50% in Water Med 01/08/21 23:44 Active 50 ml IVPUSH ASDIRECTED PRN Glucagon,Human Recombinant [GlucaGen] Med 01/08/21 23:44 Active 1 mg IM ASDIRECTED PRN Insulin Glarg,Human.Rec.Analog [LantUS Solostar] Med 01/09/21 01:18 Active 75 units SUBCUT BEDTIME Lactated Ringers [Ringers, Lactated] 1,000 ml Med 01/08/21 22:30 Active IV ASDIRECTED Sodium Chloride 0.9% [Saline Flush] Med 01/08/21 22:26 Active 10 ml FLUSH ASDIRECTED PRN Peripheral IV Insertion Adult [OM.PC] Urgent Oth 01/08/21 22:26 Ordered Medication Orders Dextrose/Water (50% Dextrose In Water 50 Ml Syringe) 50 ml IVPUSH ASDIRECTED PRN PRN Reason: Hypoglycemia Glucagon (Glucagon,Human Recombinant 1 Mg Vial) 1 mg IM ASDIRECTED PRN PRN Reason: Hypoglycemia Lactated Ringer's (Ringers, Lactated) 1,000 mls @ 999 mls/hr IV ASDIRECTED [facility] Last Admin: 01/09/21 02:07 Dose: 999 mls/hr Documented by: SUNDAR Insulin Glargine (Insulin Glargine,Human Rec. Analog 100 Units/Ml 3 Ml Pen) 75 units SUBCUT BEDTIME [facility] Last Admin: 01/09/21 01:20 Dose: 75 units Documented by: SUNDAR Cosigned by: SADA Sodium Chloride (Sodium Chloride 0.9% 10 Ml Syringe) 10 ml FLUSH ASDIRECTED PRN PRN Reason: Keep Vein Open Last Admin: 01/09/21 03:28 Dose: 10 ml Documented by: SUNDAR Labs: Laboratory Tests 07/19/21 07/19/21 07/19/21 Range/Units 22:45 22:45 22:45 WBC 7.5 (4.5-11.0) K/uL RBC 4.89 (3.30-5.50) M/uL Hgb 14.9 (12.0-15.0) g/dL Hct 42.6 (36.0-48.0) % MCV 87 (80-98) fL MCH 31 (27-31) pg MCHC 35 (32-36) % Plt Count 236 (150-400) K/uL Neut % (Auto) 57.4 (36-66) % Lymph % (Auto) 33.2 (24-44) % [place] % (Auto) 7.4 H (2-6) % Eos % (Auto) 1.3 L (2-4) % Baso % (Auto) 0.7 (0-1) % Sodium 126 L (140-148) mmol/L Potassium 5.0 (3.6-5.2) mmol/L Chloride 93 L (100-108) mmol/L Carbon Dioxide 23 (21-32) mmol/L Anion Gap 15.0 H (5.0-14.0) mmol/L BUN 31 H (7-18) mg/dL Creatinine 1.8 H (0.6-1.0) mg/dL Est Cr Clr Drug Dosing 30.85 mL/min Estimated GFR (MDRD) 29 L (>60) Glucose 550 H* (74-106) mg/dL POC Glucose (74-106) mg/dL Lactic Acid 2.5 H (0.4-2.0) mmol/L Calcium 9.6 (8.5-10.1) mg/dL Total Bilirubin 0.6 (0.2-1.0) mg/dL AST 46 H (15-37) U/L ALT 62 (12-78) U/L Alkaline Phosphatase 347 H (46-116) U/L Troponin I < 0.017 (0.000-0.056) ng/mL Total Protein 7.6 (6.4-8.2) g/dL Albumin 2.5 L (3.4-5.0) g/dL Globulin 5.1 H (2.3-3.5) g/dL Albumin/Globulin Ratio 0.5 L (1.2-2.2) Urine Color (YELLOW) Urine Appearance (CLEAR) Urine pH (5.0-8.0) Ur Specific [place] (1.008-1.030) Urine Protein (NEGATIVE) mg/dL Urine Glucose (UA) (NEGATIVE) mg/dL Urine Ketones (NEGATIVE) mg/dL Urine Occult Blood (NEGATIVE) Urine Nitrite (NEGATIVE) Urine Bilirubin (NEGATIVE) Urine Urobilinogen (0.2-1.0) EU/dL Ur Leukocyte Esterase (NEGATIVE) Urine RBC (0-5) Urine WBC (0-5) Ur Epithelial Cells Amorphous Sediment Urine Bacteria Urine Mucus 01/09/21 01/09/21 Range/Units 03:05 03:39 WBC (4.5-11.0) K/uL RBC (3.30-5.50) M/uL Hgb (12.0-15.0) g/dL Hct (36.0-48.0) % MCV (80-98) fL MCH (27-31) pg MCHC (32-36) % Plt Count (150-400) K/uL Neut % (Auto) (36-66) % Lymph % (Auto) (24-44) % [place] % (Auto) (2-6) % Eos % (Auto) (2-4) % Baso % (Auto) (0-1) % Sodium (140-148) mmol/L Potassium (3.6-5.2) mmol/L Chloride (100-108) mmol/L Carbon Dioxide (21-32) mmol/L Anion Gap (5.0-14.0) mmol/L BUN (7-18) mg/dL Creatinine (0.6-1.0) mg/dL Est Cr Clr Drug Dosing mL/min Estimated GFR (MDRD) (>60) Glucose (74-106) mg/dL POC Glucose 243 H (74-106) mg/dL Lactic Acid (0.4-2.0) mmol/L Calcium (8.5-10.1) mg/dL Total Bilirubin (0.2-1.0) mg/dL AST (15-37) U/L ALT (12-78) U/L Alkaline Phosphatase (46-116) U/L Troponin I (0.000-0.056) ng/mL Total Protein (6.4-8.2) g/dL Albumin (3.4-5.0) g/dL Globulin (2.3-3.5) g/dL Albumin/Globulin Ratio (1.2-2.2) Urine Color Yellow (YELLOW) Urine Appearance Cloudy A (CLEAR) Urine pH 5.0 (5.0-8.0) Ur Specific [place] 1.025 (1.008-1.030) Urine Protein >=300 H (NEGATIVE) mg/dL Urine Glucose (UA) >=1000 H (NEGATIVE) mg/dL Urine Ketones Negative (NEGATIVE) mg/dL Urine Occult Blood Moderate H (NEGATIVE) Urine Nitrite Negative (NEGATIVE) Urine Bilirubin Negative (NEGATIVE) Urine Urobilinogen 0.2 (0.2-1.0) EU/dL Ur Leukocyte Esterase Trace H (NEGATIVE) Urine RBC 0-5 (0-5) Urine WBC >100 H (0-5) Ur Epithelial Cells Few Amorphous Sediment Not seen Urine Bacteria Many Urine Mucus Not seen Meds: Medications Generic Name Dose Route Start Last Admin Trade Name Freq PRN Reason Stop Dose Admin Dextrose/Water 50 ml 01/08/21 23:44 50% Dextrose In Water 50 Ml Syringe IVPUSH ASDIRECTED PRN Hypoglycemia Glucagon 1 mg 01/08/21 23:44 Glucagon,Human Recombinant 1 Mg Vial IM ASDIRECTED PRN Hypoglycemia Lactated Ringer's 1,000 mls @ 999 mls/hr 01/08/21 22:30 01/09/21 02:07 Ringers, Lactated IV 999 mls/hr ASDIRECTED SHAWN Administration Insulin Glargine 75 units 01/09/21 01:18 01/09/21 01:20 Insulin Glargine,Human Rec. Analog 100 Units/Ml 3 Ml Pen SUBCUT 75 units BEDTIME SHAWN Administration Sodium Chloride 10 ml 01/08/21 22:26 01/09/21 03:28 Sodium Chloride 0.9% 10 Ml Syringe FLUSH 10 ml ASDIRECTED PRN Administration Keep Vein Open Discontinued Medications Generic Name Dose Route Start Last Admin Trade Name Freq PRN Reason Stop Dose Admin Lactated Ringer's 1,000 mls @ 999 mls/hr 01/08/21 23:46 01/09/21 00:23 Ringers, Lactated IV 01/09/21 00:46 500 mls/hr BOLUS ONE Administration Insulin Glargine 75 units 01/09/21 21:00 Insulin Glargine,Human Rec. Analog 100 Units/Ml 3 Ml Pen SUBCUT BEDTIME SHAWN Insulin Glargine Confirm 01/09/21 00:39 Insulin Glargine,Human Rec. Analog 100 Units/Ml 3 Ml Pen Administered 01/09/21 00:40 Dose 300 units .ROUTE .STK-MED ONE Insulin Human Regular 10 unit 01/08/21 23:45 01/09/21 00:29 Insulin Regular, Human 100 Units/Ml 3 Ml Vial IVPUSH 01/08/21 23:46 10 units ONETIME ONE Administration Protocol Ondansetron HCl 4 mg 01/08/21 22:27 01/09/21 00:35 Ondansetron 4 Mg/2 Ml Sdv IVPUSH 01/08/21 22:28 4 mg ONETIME ONE Administration Ondansetron HCl 4 mg 01/09/21 03:18 01/09/21 03:28 Ondansetron 4 Mg/2 Ml Sdv IVPUSH 01/09/21 03:19 4 mg ONETIME ONE Administration Departure - Departure Time of Disposition: 03:46 Disposition: Home, Self-Care 01 Condition: Fair Clinical Impression: Nausea and vomiting Qualifiers: Vomiting type: unspecified Vomiting Intractability: non-intractable Qualified Code(s): R11.2 - Nausea with vomiting, unspecified - Discharge Information Prescriptions: Omeprazole 20 mg PO BID #30 tablet. Ondansetron [Zofran ODT] 4 mg PO Q6H PRN #5 tab.dis PRN Reason: Nausea Instructions: Nausea and Vomiting, Adult, [id number] Referrals: PCP,None [Primary Care Provider] - Forms: ED Department Discharge Additional Instructions: Continue to use Zofran as needed for nausea vomiting symptoms, continue to push fluids your medications have been faxed to [facility] please keep your follow-up appointment with your primary care call return to the emergency department worsening of symptoms Sepsis Event Note (ED) - Evaluation Sepsis Screening Result: No Definite Risk - Focused Exam Vital Signs: Vital Signs Temp Pulse Resp BP Pulse Ox 01/09/21 03:32 78 16 122/79 97 01/08/21 22:04 97.8 F 108 H 16 105/72 98 01/08/21 22:00 97.8 F 108 H 16 105/72 98 - My Orders Last 24 Hours: My Active Orders 01/08/21 22:26 Sodium Chloride 0.9% [Saline Flush] 10 ml FLUSH ASDIRECTED PRN Peripheral IV Insertion Adult [OM.PC] Urgent 01/08/21 22:27 Peripheral IV Care [RC] . DIRECTED 01/08/21 22:30 Lactated Ringers [Ringers, Lactated] 1,000 ml IV ASDIRECTED 01/08/21 23:44 Dextrose 50% in Water 50 ml IVPUSH ASDIRECTED PRN Glucagon,Human Recombinant [GlucaGen] 1 mg IM ASDIRECTED PRN 01/09/21 01:18 Insulin Glarg,Human.Rec.Analog [LantUS Solostar] 75 units SUBCUT BEDTIME 01/09/21 03:35 GLUCOSE POC LAB TO COLLECT JPM [POC] Stat 01/09/21 03:43 CULTURE URINE [RM] Urgent - Assessment/Plan Last 24 Hours: My Active Orders 01/08/21 22:26 Sodium Chloride 0.9% [Saline Flush] 10 ml FLUSH ASDIRECTED PRN Peripheral IV Insertion Adult [OM.PC] Urgent 01/08/21 22:27 Peripheral IV Care [RC] . DIRECTED 01/08/21 22:30 Lactated Ringers [Ringers, Lactated] 1,000 ml IV ASDIRECTED 01/08/21 23:44 Dextrose 50% in Water 50 ml IVPUSH ASDIRECTED PRN Glucagon,Human Recombinant [GlucaGen] 1 mg IM ASDIRECTED PRN 01/09/21 01:18 Insulin Glarg,Human.Rec.Analog [LantUS Solostar] 75 units SUBCUT BEDTIME 01/09/21 03:35 GLUCOSE POC LAB TO COLLECT JPM [POC] Stat 01/09/21 03:43 CULTURE URINE [RM] Urgent Plan: Assessment Acuity = acute Site and laterality = nausea and vomiting Etiology = probably related to the vancomycin Manifestations = none Location of injury = Home Lab values = CBC unremarkable sodium low at 126 consistent hyponatremia creatinine elevated 1.8 consistent with acute renal failure stage G4 glucose 550 consistent hyperglycemia after treatment down to 243 lactic acid elevated 2.5 consistent lactic acidosis and troponin was negative Plan Good improvement 2 L of fluid and Zofran prescription written for Zofran ODT 4 mg 1 tab p.o. 3 times daily as needed total #5 medications faxed to her pharmacy This note was dictated using [employer]'s voice recognition software please call with any questions on syntax or grammar.
[2021-01-08] MEDS ORDERED: 50% Dextrose in Water 50 ML Syringe IVPUSH PRN (23:44)
[2021-01-08] MEDS ORDERED: Glucagon,Human Recombinant 1 MG Vial IM PRN (23:44)
[2021-01-08] MEDS ORDERED: Insulin Regular, Human 100 Units/ML 3 ML Vial IVPUSH ONE (23:45)
[2021-01-08] MEDS ORDERED: Lactated Ringers 1,000 ML IV ONE (23:46)
[2021-01-09] MEDS ORDERED: Insulin Glargine,Human Rec. Analog 100 Units/ML 3 ML Pen ONE (00:39)
[2021-01-09] MEDS ORDERED: Insulin Glargine,Human Rec. Analog 100 Units/ML 3 ML Pen SUBCUT SCH ×2 (01:18→21:00)
[2021-01-09] MEDS ORDERED: Ondansetron 4 MG/2 ML SDV IVPUSH ONE (03:18)
== END 2021-01-09 04:04 | disposition home or self-care (01) ==
LOC: JP.ED 21:36
DX: R11.2 Nausea with vomiting, unspecified (principal); E11.21 Type 2 diabetes mellitus with diabetic nephropathy; E03.9 Hypothyroidism, unspecified; E78.00 Pure hypercholesterolemia, unspecified; I10 Essential (primary) hypertension; E66.9 Obesity, unspecified; J44.9 Chronic obstructive pulmonary disease, unspecified; Z68.34 Body mass index [BMI] 34.0-34.9, adult; Z72.0 Tobacco use; Z91.041 Radiographic dye allergy status; Z91.030 Bee allergy status; Z91.09 Other allergy status, other than to drugs and biological substances; Z88.5 Allergy status to narcotic agent; Z88.6 Allergy status to analgesic agent; Z91.018 Allergy to other foods; Z91.040 Latex allergy status
CPT/HCPCS: 36415; 80053; 82947; 83605; 84484; 85025; 87086; 87088; 87186; 96374; 96376; 99284; J1815; J2405; J7120

== ENCOUNTER 2021-07-07 20:44 | Emergency (ER) | payer MEDICAID ==
[2021-07-07] MEDS ORDERED: predniSONE 20 MG Tab PO ONE (21:28)
[2021-07-07] MEDS ORDERED: diphenhydrAMINE 50 MG/ML SDV IM ONE (21:28)
== END 2021-07-07 22:44 | disposition home or self-care (01) ==
LOC: JP.ED 20:44
DX: T78.40XA Allergy, unspecified, initial encounter (principal); E78.00 Pure hypercholesterolemia, unspecified; I10 Essential (primary) hypertension; J44.9 Chronic obstructive pulmonary disease, unspecified; E11.9 Type 2 diabetes mellitus without complications; E05.90 Thyrotoxicosis, unspecified without thyrotoxic crisis or storm; E11.40 Type 2 diabetes mellitus with diabetic neuropathy, unspecified; E66.9 Obesity, unspecified; Z72.0 Tobacco use; Z68.35 Body mass index [BMI] 35.0-35.9, adult; Z91.040 Latex allergy status; Z88.5 Allergy status to narcotic agent; Z88.6 Allergy status to analgesic agent; Z88.8 Allergy status to other drugs, medicaments and biological substances; Z91.048 Other nonmedicinal substance allergy status; Z79.899 Other long term (current) drug therapy
CPT/HCPCS: 96372; 99283; J1200; J7512

== ENCOUNTER 2021-07-13 14:40 | Emergency (ER) | payer MEDICAID ==
[2021-07-13 16:41] LABS: CORONAVIRUS COVID-19 NAA POSITIVE (NEGATIVE)
[2021-07-13] MEDS ORDERED: Sodium Chloride 0.9% 10 ML Syringe FLUSH PRN (20:17)
[2021-07-13] MEDS ORDERED: Sodium Chloride 0.9% 1,000 ML IV SCH (20:30)
[2021-07-13] MEDS ORDERED: Dicyclomine 10 MG Cap PO ONE (21:19)
== END 2021-07-13 21:45 | disposition home or self-care (01) ==
LOC: JP.ED 14:40
DX: U07.1 COVID-19 (principal); E87.1 Hypo-osmolality and hyponatremia; R74.01 Elevation of levels of liver transaminase levels; E87.79 Other fluid overload; N17.9 Acute kidney failure, unspecified; E11.65 Type 2 diabetes mellitus with hyperglycemia; I10 Essential (primary) hypertension; J44.9 Chronic obstructive pulmonary disease, unspecified; E11.21 Type 2 diabetes mellitus with diabetic nephropathy; E05.90 Thyrotoxicosis, unspecified without thyrotoxic crisis or storm; E66.9 Obesity, unspecified; Z68.35 Body mass index [BMI] 35.0-35.9, adult; Z72.0 Tobacco use; Z88.8 Allergy status to other drugs, medicaments and biological substances; Z88.5 Allergy status to narcotic agent; Z91.030 Bee allergy status; Z91.048 Other nonmedicinal substance allergy status; Z91.041 Radiographic dye allergy status; Z91.040 Latex allergy status; Z79.4 Long term (current) use of insulin; Z79.899 Other long term (current) drug therapy
CPT/HCPCS: 0241U; 36415; 71045; 71045-26; 80053; 82728; 83605; 83615; 84145; 85025; 85379; 86140; 99284; 99284-25; A9270-GY

== ENCOUNTER 2021-07-18 14:56 | Emergency (ER) | payer MEDICAID ==
[2021-07-18] MEDS ORDERED: Acetaminophen 500 MG Tab PO ONE (16:05)
[2021-07-18] MEDS ORDERED: Ondansetron 4 MG Tab.DIS PO ONE (16:05)
== END 2021-07-18 16:52 | disposition home or self-care (01) ==
LOC: JP.ED 14:56
DX: S20.211A Contusion of right front wall of thorax, initial encounter (principal); R19.7 Diarrhea, unspecified; U07.1 COVID-19; J12.82 Pneumonia due to coronavirus disease 2019; J44.9 Chronic obstructive pulmonary disease, unspecified; E11.21 Type 2 diabetes mellitus with diabetic nephropathy; F17.200 Nicotine dependence, unspecified, uncomplicated; E66.9 Obesity, unspecified; Z68.34 Body mass index [BMI] 34.0-34.9, adult; Z91.030 Bee allergy status; Z88.6 Allergy status to analgesic agent; Z88.8 Allergy status to other drugs, medicaments and biological substances; Z91.041 Radiographic dye allergy status; Z91.040 Latex allergy status; Z91.09 Other allergy status, other than to drugs and biological substances; Z79.899 Other long term (current) drug therapy; Z79.4 Long term (current) use of insulin; W18.30XA Fall on same level, unspecified, initial encounter
CPT/HCPCS: 36415; 71045; 80053; 82728; 85025; 85379; 86140; 99285; A9270; Q0162

== ENCOUNTER 2021-11-15 12:17 | Emergency (ER) | payer MEDICAID | END 2021-11-15 14:24 | disposition home or self-care (01) | LOC: JP.ED 12:17 | DX: R42 Dizziness and giddiness (principal); I12.9 Hypertensive chronic kidney disease with stage 1 through stage 4 chronic kidney disease, or unspecified chronic kidney disease; N18.30 Chronic kidney disease, stage 3 unspecified; J44.9 Chronic obstructive pulmonary disease, unspecified; E78.00 Pure hypercholesterolemia, unspecified; Z91.041 Radiographic dye allergy status; Z88.6 Allergy status to analgesic agent; Z91.048 Other nonmedicinal substance allergy status; Z91.030 Bee allergy status; Z91.040 Latex allergy status; Z88.5 Allergy status to narcotic agent; Z91.09 Other allergy status, other than to drugs and biological substances; Z79.899 Other long term (current) drug therapy; Z72.0 Tobacco use | CPT/HCPCS: 36415; 80053; 80305-QW; 81001; 82140; 83690; 85025; 99282; 99283 ==

== ENCOUNTER 2022-02-22 21:36 | Emergency (ER) | payer MEDICAID | END 2022-02-22 22:22 | disposition left against medical advice (07) | LOC: JP.ED 21:36 | DX: Z53.21 Procedure and treatment not carried out due to patient leaving prior to being seen by health care provider (principal) ==

== ENCOUNTER 2022-04-09 18:13 | Emergency (ER) | payer MEDICAID ==
[2022-04-09] MEDS ORDERED: Sodium Chloride 0.9% 10 ML Syringe FLUSH PRN (19:11)
[2022-04-09] MEDS ORDERED: Furosemide 40 MG/4 ML VIAL IVPUSH ONE (19:12)
[2022-04-09 19:49] LABS: ESTIMATED GFR 27 mL/min (>60)
[2022-04-09] MEDS ORDERED: cefTRIAXone 1 GM Vial IM ONE (21:02)
[2022-04-09] MEDS ORDERED: traMADol 50 MG Tab PO ONE (21:03)
[2022-04-09] MEDS ORDERED: Lidocaine 1% 5 ML VIAL ONE (21:18)
[2022-04-09] MEDS ORDERED: oxyCODONE 5 MG Tab PO ONE (21:32)
[2022-04-09] MEDS ORDERED: diphenhydrAMINE 50 MG/ML SDV IM ONE (21:33)
== END 2022-04-09 22:06 | disposition home or self-care (01) ==
LOC: JP.ED 18:13
DX: K04.7 Periapical abscess without sinus (principal); N39.0 Urinary tract infection, site not specified; R42 Dizziness and giddiness; E86.0 Dehydration; N28.9 Disorder of kidney and ureter, unspecified; E78.00 Pure hypercholesterolemia, unspecified; I10 Essential (primary) hypertension; J44.9 Chronic obstructive pulmonary disease, unspecified; E11.21 Type 2 diabetes mellitus with diabetic nephropathy; E03.9 Hypothyroidism, unspecified; F17.210 Nicotine dependence, cigarettes, uncomplicated; E66.9 Obesity, unspecified; Z68.30 Body mass index [BMI] 30.0-30.9, adult; Z88.5 Allergy status to narcotic agent; Z91.09 Other allergy status, other than to drugs and biological substances; Z88.8 Allergy status to other drugs, medicaments and biological substances; Z91.030 Bee allergy status; Z91.041 Radiographic dye allergy status; Z79.4 Long term (current) use of insulin; Z79.899 Other long term (current) drug therapy
CPT/HCPCS: 36415; 71101; 80053; 81001; 83880; 84443; 84484; 85025; 87086; 93005; 96372; 99284; A9270; J0696; J1200

== ENCOUNTER 2022-04-26 14:00 | Emergency (ER) | payer MEDICAID ==
[2022-04-26 16:39] LABS: ESTIMATED GFR 31 mL/min (>60)
[2022-04-26] MEDS ORDERED: Sodium Chloride 0.9% 10 ML Syringe FLUSH PRN (16:47)
[2022-04-26] MEDS ORDERED: Sodium Chloride 0.9% 1,000 ML IV SCH (17:00)
[2022-04-26] MEDS ORDERED: Metolazone 2.5 MG Tab PO ONE (19:24)
[2022-04-26] MEDS ORDERED: oxyCODONE 5 MG Tab PO ONE (19:29)
[2022-04-26 20:22] LABS: CORONAVIRUS COVID-19 NAA NEGATIVE (NEGATIVE)
[2022-05-02 13:11] LABS: BABESIA MICROTI IGG <1:10 (Neg:<1:10); BABESIA MICROTI IGM <1:10 (Neg:<1:10); HGE IGG TITER Negative (Neg:<1:64); HGE IGM TITER Negative (Neg:<1:20)
== END 2022-04-26 20:58 | disposition home or self-care (01) ==
LOC: JP.ED 14:00
DX: M54.50 Low back pain, unspecified (principal); M25.551 Pain in right hip; G89.29 Other chronic pain; E11.65 Type 2 diabetes mellitus with hyperglycemia; E87.5 Hyperkalemia; I12.9 Hypertensive chronic kidney disease with stage 1 through stage 4 chronic kidney disease, or unspecified chronic kidney disease; E11.22 Type 2 diabetes mellitus with diabetic chronic kidney disease; N18.30 Chronic kidney disease, stage 3 unspecified; J44.9 Chronic obstructive pulmonary disease, unspecified; E11.21 Type 2 diabetes mellitus with diabetic nephropathy; E05.90 Thyrotoxicosis, unspecified without thyrotoxic crisis or storm; E66.9 Obesity, unspecified; Z68.37 Body mass index [BMI] 37.0-37.9, adult; Z72.0 Tobacco use; Z88.8 Allergy status to other drugs, medicaments and biological substances; Z88.5 Allergy status to narcotic agent; Z88.1 Allergy status to other antibiotic agents; Z88.0 Allergy status to penicillin; Z91.030 Bee allergy status; Z91.048 Other nonmedicinal substance allergy status; Z91.041 Radiographic dye allergy status; Z91.040 Latex allergy status; Z79.4 Long term (current) use of insulin; Z79.899 Other long term (current) drug therapy; Z20.822 Contact with and (suspected) exposure to COVID-19
CPT/HCPCS: 0241U; 36415; 73502; 80053; 81001; 84443; 85025; 85651; 86140; 86618; 86666; 86753; 99283; A9270

== ENCOUNTER 2022-10-28 06:14 | Emergency (ER) | payer MEDICAID ==
[2022-10-28 06:52] LABS: BASOPHILS ABSOLUTE AUTO 0.03 K/uL (0.00-0.10); BASOPHILS PERCENT AUTO 0.5 % (0.1-1.3); EOSINOPHILS PERCENT AUTO 1.7 % (0.0-5.4); HEMATOCRIT 36.2 % (34.3-46.0); IMMATURE GRAN PERCENT AUTO 0.2 % (0.0-0.7); LYMPHOCYTES ABSOLUTE AUTO 2.26 K/uL (0.8-3.3); LYMPHOCYTES PERCENT AUTO 38.5 % (11.4-47.7); MEAN CORPUSCULAR HEMOGLOBIN 30.1 pg (31.6-35.5); MEAN CORPUSCULAR HGB CONC 33.1 g/dL (31.6-35.5); MEAN CORPUSCULAR VOLUME 90.7 fL (81.4-99.0); MONOCYTES ABSOLUTE AUTO 0.48 K/uL (0.20-0.90); MONOCYTES PERCENT AUTO 8.2 % (3.3-12.6); NEUTROPHILS ABSOLUTE AUTO 2.99 K/uL (1.0-7.6); NEUTROPHILS PERCENT AUTO 50.9 % (40.0-78.1); PLATELET COUNT,PLT 180 K/uL (130-375); RED BLOOD CELL COUNT 3.99 M/uL (3.77-5.24); WHITE BLOOD CELL COUNT,WBC 5.9 K/uL (3.2-11.0)
[2022-10-28 06:53] LABS: IMMATURE GRAN ABSOLUTE AUTO 0.01 K/uL (0.00-0.23)
[2022-10-28 07:06] LABS: CALCIUM 8.4 mg/dL (8.5-10.1); EST CRCL DRUG DOSING (CG) 27.12 mL/min; POTASSIUM,K 4.1 mmol/L (3.6-5.2)
[2022-10-28 07:08] LABS: ANION GAP 11.1 mmol/L (5.0-14.0)
[2022-10-28 08:02] LABS: PROTEIN TOTAL,TP 7.4 g/dL (6.4-8.2)
[2022-10-28 10:48] LABS: BODY FLUID TYPE PLEURAL FLUID
[2022-10-28 10:49] LABS: RBC,BODY FLUID 44 /ul; WBC BODY FLUID 47 /ul
[2022-10-28 10:51] LABS: MONONUCLEAR, BODY FLUID 93 %; POLYMORPHONUCLEAR, BODY FLUID 7 %
[2022-10-28 11:06] LABS: BODY FLUID TYPE THORACENTESIS FLUID; PROTEIN,BODY FLUID 1.3 g/dL
[2022-10-28 11:06] LABS: BODY FLUID TYPE PLEURAL FLUID; GLUCOSE,BODY FLUID 273 mg/dL; LACTATE DEHYDROGENASE,BODY FL 72 IU/L
== END 2022-10-28 11:24 | disposition home or self-care (01) ==
LOC: JP.ED 06:14
DX: J90 Pleural effusion, not elsewhere classified (principal); J44.9 Chronic obstructive pulmonary disease, unspecified; I12.9 Hypertensive chronic kidney disease with stage 1 through stage 4 chronic kidney disease, or unspecified chronic kidney disease; E11.21 Type 2 diabetes mellitus with diabetic nephropathy; E11.22 Type 2 diabetes mellitus with diabetic chronic kidney disease; N18.30 Chronic kidney disease, stage 3 unspecified; E03.9 Hypothyroidism, unspecified; E66.9 Obesity, unspecified; Z86.16 Personal history of COVID-19; Z72.0 Tobacco use; Z91.041 Radiographic dye allergy status; Z88.5 Allergy status to narcotic agent; Z88.8 Allergy status to other drugs, medicaments and biological substances; Z88.0 Allergy status to penicillin; Z91.030 Bee allergy status; Z91.040 Latex allergy status; Z79.899 Other long term (current) drug therapy; Z79.4 Long term (current) use of insulin; Z68.34 Body mass index [BMI] 34.0-34.9, adult
CPT/HCPCS: 36415; 71046; 71046-26; 80048; 82945; 83615; 84155; 84157; 85025; 87070; 87205; 89050; 93005; 99285